=== PATIENT | male | born 1990 | race African-American/Black ===

== ENCOUNTER 2024-10-17 20:19 | Emergency (ER) | payer OTHER ==
[~2024-10-17] VITALS: Ht 167.6 cm; Wt 99.8 kg
[2024-10-17] MEDS ORDERED: IBUP-1490 PO (21:05)
[2024-10-17] MEDS ORDERED: BUTE12CR TP (21:05)
[2024-10-17 21:10] VITALS: BP 120/66; TEMP 98.1; O2SAT 99
== END 2024-10-17 21:10 | disposition home or self-care (01) ==
LOC: ER 20:23
DX: B35.3 Tinea pedis (principal)